=== PATIENT | female | born 1945 | race Caucasian/White ===

== ENCOUNTER 2019-01-03 09:31 | Emergency (ER) | payer MEDICARE, BC ==
[~2019-01-03] VITALS: Ht 157.5 cm; Wt 63.6 kg
[~2019-01-03 09:31] MED LIST: ACET-1025 PO; ALEN70TA14 PO; CALC-627 PO; ERGO500014 PO; PHEN100C12 PO
[2019-01-03] MEDS ORDERED: LIDOcaine 1.5% w/epinephrine 1:200,000 5ml ampul SQ ONE (10:10)
[2019-01-03] MEDS ORDERED: LIDOcaine 1% W/epiNEPHrine 1:200,000 10ml vial SQ ONE (10:20)
--- NOTE | 2019-01-03 10:51 | NUR ---
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
--- NOTE | 2019-01-03 10:56 | NUR ---
pt returns from from xray
[2019-01-03 11:40] VITALS: BP 144/67
== END 2019-01-03 11:50 | disposition home or self-care (01) ==
LOC: ER 09:31
DX: S01.81XA Laceration without foreign body of other part of head, initial encounter (principal); S60.212A Contusion of left wrist, initial encounter; S80.01XA Contusion of right knee, initial encounter; Z88.5 Allergy status to narcotic agent; Z88.6 Allergy status to analgesic agent; Z79.899 Other long term (current) drug therapy; W18.39XA Other fall on same level, initial encounter; Y93.89 Activity, other specified; Y92.89 Other specified places as the place of occurrence of the external cause; Y99.8 Other external cause status
CPT/HCPCS: 12013; 29125; 73090; 73110; 99284

== ENCOUNTER 2021-01-01 11:59 | Emergency (ER) | payer BC, MEDICARE ==
[~2021-01-01] VITALS: Ht 157.5 cm; Wt 54.5 kg
[2021-01-01 13:23] LABS: BASOPHILS % (AUTO) 0.8 % (0-1); EOSINOPHILS % (AUTO) 0.9 % (0-6); HEMATOCRIT 41.1 % (35.0-45.0); HEMOGLOBIN 13.5 g/dl (12.0-16.0); LYMPHOCYTES # (AUTO) 1.3 X10'3 (1.1-4.8); LYMPHOCYTES % (AUTO) 31.8 % (21-51); MEAN CORPUSCULAR HEMOGLOBIN 33.2 PG (27.0-31.0); MEAN CORPUSCULAR HGB CONC 32.9 g/dL (33.0-36.5); MEAN PLATELET VOLUME 11.4 FL (7.4-10.4); MONOCYTES # (AUTO) 0.4 X10'3 (0-0.9); MONOCYTES % (AUTO) 8.8 % (2-12); NEUTROPHILS # (AUTO) 2.4 X10'3 (1.8-7.7); NEUTROPHILS % (AUTO) 57.7 % (42-75); PLATELET COUNT 149 X10'3 (140-440); RED BLOOD COUNT 4.07 X10'6 (4.20-5.60); RED CELL DISTRIBUTION WIDTH 13.6 % (11.5-14.5); WHITE BLOOD COUNT 4.1 X10'3 (4.5-11.0)
[2021-01-01 13:42] LABS: ALANINE AMINOTRANSFERASE 22 U/L (12-78); ALBUMIN 4.2 G/DL (3.4-5.0); ALBUMIN/GLOBULIN RATIO 1.4 (1.1-1.5); ALKALINE PHOSPHATASE 85 IU/L (46-116); ASPARTATE AMINO TRANSFERASE 10 U/L (10-37); BILIRUBIN,TOTAL 0.3 MG/DL (0.1-1.0); BLOOD UREA NITROGEN 21 MG/DL (7-18); BUN/CREATININE RATIO 23.6 (6.6-38.0); CALCIUM 8.8 MG/DL (8.5-10.1); CREATININE 0.89 MG/DL (0.40-0.90); GLUCOSE 99 MG/DL (70-104); POTASSIUM 4.6 MMOL/L (3.5-5.1); SODIUM 144 MMOL/L (135-145); TOTAL CARBON DIOXIDE 30.8 MMOL/L (24-32); TOTAL PROTEIN 7.2 G/DL (6.4-8.2); eGFR 62 ML/MIN
[2021-01-01 13:44] LABS: ANION GAP 6 (8-16); CHLORIDE 107 MMOL/L (99-107)
[2021-01-01 13:46] LABS: TROPONIN I < 0.04 NG/ML (0.0-0.05)
--- NOTE | 2021-01-01 16:45 | NUR ---
Patient states she just voided and is unable to provide urine sample. Water placed at bedside.
[2021-01-01 17:52] LABS: CLARITY,URINE SLIGHTLY CLOUDY (Clear); COLOR,URINE YELLOW (Yellow); UA COLLECTION TYPE CLN CATCH MIDSTREAM
[2021-01-01 17:53] LABS: GLUCOSE, URINE NEGATIVE (Neg); KETONES,URINE NEGATIVE (Neg); NITRITES, URINE NEGATIVE (Neg); OCCULT BLOOD,URINE TRACE-LYSED (Neg); PH,URINE 7.5 (4.8-8.0); PROTEIN,URINE NEGATIVE (Neg)
[2021-01-01 17:54] LABS: UROBILINOGEN,URINE 0.2 E.U/dL (0.2-1.0)
[2021-01-01 17:55] LABS: LEUKOCYTE ESTERASE ,URINE MODERATE (Neg)
[2021-01-01 17:57] LABS: MUCUS STRANDS FEW /LPF (Neg); SQUAMOUS EPITHELIAL CELL,UR MODERATE /LPF (FEW)
[2021-01-01 17:58] LABS: BACTERIA,URINE 1+ /HPF (Neg); RBC,URINE 0-2 /HPF (0-2)
[2021-01-01 18:04] LABS: URINE AMPHETAMINE SCREEN NEGATIVE (Neg); URINE BARBITUATE SCREEN NEGATIVE (Neg); URINE BENZODIAZEPINES SCREEN NEGATIVE (Neg); URINE CANNABINOID SCREEN NEGATIVE (Neg); URINE COCAINE SCREEN NEGATIVE (Neg); URINE METHADONE SCREEN NEGATIVE (Neg); URINE OPIATE SCREEN NEGATIVE (Neg); URINE PHENCYCLIDINE SCREEN NEGATIVE (Neg)
[2021-01-01] MEDS ORDERED: cephalexin 250mg capsule PO ONE (21:45)
--- NOTE | 2021-01-01 21:45 | NUR ---
HAD PT WALK TO THE MD. THE PT HAD ASKED ME TWICE TO GO HOME. MD INFORMED. PT HAS A STRONG AND STEADY GAIT AND STATES THAT SHE IS FEELING SO MUCH BETTER, AND REALLY WANTS TO GO HOME INSTEAD OF BEING ADMITTED. HER SPOUSE IS HERE WELL. MD TALKED TO THE PT AND WILL SEND HER HOME ON ABX FOR UTI.
[2021-01-01] MEDS ORDERED: CEPH-585 PO (21:46)
[2021-01-01 22:32] VITALS: BP 172/74
== END 2021-01-01 22:33 | disposition home or self-care (01) ==
LOC: ER 11:59
DX: N39.0 Urinary tract infection, site not specified (principal); R42 Dizziness and giddiness; Z86.69 Personal history of other diseases of the nervous system and sense organs; Z88.8 Allergy status to other drugs, medicaments and biological substances; Z79.899 Other long term (current) drug therapy
CPT/HCPCS: 36415; 70450; 71045; 80053; 80305; 81001; 84484; 85025; 87077; 87088; 87186; 93005; 99285

== ENCOUNTER 2024-12-15 16:25 | Emergency (ER) | payer MEDICARE, BC ==
[~2024-12-15] VITALS: Ht 157.5 cm; Wt 54.2 kg
[~2024-12-15 16:25] MED LIST changes: +BISA10SU60 RC
--- NOTE | 2024-12-15 16:31 | ELECTROCARDIOGRAPH REPORT ---
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
[2024-12-15 16:33] VITALS: BP 152/84; PULSE 71; RESP 16; TEMP 98.3; O2SAT 98
--- NOTE | 2024-12-15 17:16 | RADIOLOGY REPORT ---
CHEST RADIOGRAPH Indication: CP Technique: Single frontal view of the chest was obtained Comparison: CHEST,SINGLE VIEW on DOS: 01/01/21 FINDINGS: Lines and Tubes: None Lungs: No focal consolidation. Pleura: No effusion. No pneumothorax. Cardiomediastinal contours: Unremarkable Bones: No acute osseous abnormality. IMPRESSION: No acute cardiopulmonary disease.
[2024-12-15 17:26] LABS: MEAN PLATELET VOLUME 11.7 FL (7.4-10.4); RED CELL DISTRIBUTION WIDTH 13.8 % (11.5-14.5)
--- NOTE | 2024-12-15 17:28 | Physician Documentation ---
History of Present Illness ~ Chief Complaint: Dizziness Stated Complaint: DIZZINESS/FALLING Time Seen by MD: 17:04 Primary Medical Doctor: MD Aniket Source: patient Mode of Arrival: POV Exam Limitations: no limitations HPI Chief Complaint: Fall Caveat: None Independent Historians: None History of Present Illness: Patient is a 79-year-old woman who denies any medical problems complains of a fallen at home prior to arrival. Patient states that she was outside at her [employer] pile when all of sudden her legs came out from underneath her but she fell forward landing onto her hands. Patient denies any injury. Patient does not know why she fell. Patient denies passing out. Patient states that she fell one week ago outside also. No injuries. Patient is adamantly denying any dizziness or vertigo. Patient denies any chest pain. No shortness a breath. Patient denies any nausea vomiting diarrhea. Patient denies any associated symptoms. She is wanting to know why she fell. She does not know why she fell. However the patient has no other symptoms. Review of systems: All systems were reviewed and are negative except for what is indicated in the history of present illness. Past Medical History: Distant history of epilepsy and seizures Past Surgical History: Noncontributory Social History: No tobacco use, no alcohol use, no drug use Medications: Reviewed as documented Nursing Notes Allergies: Reviewed as documented in Nursing Notes Tetanus within 5 Years?: Yes Medication Reconciliation Allergies: Coded Allergies: hydrocodone (Unverified Adverse Reaction, Severe, extremely hyper, off the mena, 12/15/24) meperidine HCl (Verified Adverse Reaction, Severe, SEIZURE, 12/15/24) Scheduled Alendronate Sodium (Alendronate Sodium), 70 MG PO Q7D, (Reported) Bisacodyl (Dulcolax), 1 SUPP RC DAILY Calcium/Magnesium (Calcium Magnesium Tablet), 1 TAB PO DAILY, (Reported) Ergocalciferol* (Vitamin D*), 1 CAP PO Q 14 DAYS ON SUN, (Reported) Phenytoin Sodium Extended (Phenytoin Sodium Extended), 100 MG PO TID, (Reported) Scheduled PRN Acetaminophen (Tylenol Extra Strength), 1 TAB PO DAILY PRN for pain, (Reported) Past Medical History Past Medical History: Seizures Past Surgical History: , orthopedic surgeries Alcohol Use: None Drug Use: none Lives In: Home Review of Systems All Other Systems at this time: Reviewed and Negative ROS Patient denies any other acute symptoms other than above. All other systems are negative Physical Exam Vital Signs: RN Vital Signs have been reviewed: Yes, Temperature: 98.3, Source: Temporal, Heart Rate: 71, Respiratory Rate: 16, BP: 152/84, Pulse Oximetry: 98, Weight: 54.200 Oxygen Flow Rate: 0 Pulse Oximetry Reflects: adequate oxygenation Physical Exam General Appearance: No distress HEENT: Normal OP, moist oral mucosa, PERRL, EOMI, head and face appear atraumatic Neck: supple, normal ROM, trachea midline Pulmonary: No respiratory distress, CTA, BS equal Cardiac: RRR, no murmur, rub or gallop, GI: nondistended, soft, nontender, normal bowel sounds, no guarding, no rebound Extremities: normal ROM, no swelling, non-tender, extremities appear atraumatic Skin: intact, dry, warm, no rashes Neuro: AAOx3, speech is clear, no focal motor weakness, no pronator drift, 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, dorsiflexion and plantar flexion 5/5 bilaterally Psych: normal affect, good eye contact, no apparent hallucination, normal speech Progress Results/Orders Results/Orders Orders - DENZEL DODSON MD Chest,Single View (12/15/24 16:39) Monitor (12/15/24 16:39) Saline Lock (12/15/24 16:39) Oxygen (12/15/24 16:39) Hs Troponin I W Calculations (12/15/24 18:39) Hs Troponin I W Calculations (12/15/24 19:39) Completed Orders - DENZEL DODSON MD Electrocardiogram (12/15/24 ) Chest,Single View (12/15/24 16:39) Cbc/Diff (12/15/24 16:39) BMP (12/15/24 16:39) PBNP (12/15/24 16:39) Hs Troponin I W Calculations (12/15/24 16:39) Vital Signs 12/15/24 16:33 Temp 98.3 Pulse 71 Resp 16 B/P (MAP) 152/84 Pulse Ox 98 O2 Flow Rate 0 Laboratory Tests Test 12/15/24 16:36 12/15/24 17:00 Glucometer 114 H White Blood Count 4.5 Red Blood Count 3.95 L Hemoglobin 13.2 Hematocrit 38.4 Mean Corpuscular Volume 97.2 Mean Corpuscular Hemoglobin 33.3 H Mean Corpuscular Hemoglobin Concent 34.3 Red Cell Distribution Width 13.8 Platelet Count 111 L Mean Platelet Volume 11.7 H Neutrophils (%) (Auto) 60.9 Lymphocytes (%) (Auto) 27.9 Monocytes (%) (Auto) 9.7 Eosinophils (%) (Auto) 0.7 Basophils (%) (Auto) 0.8 Neutrophils # (Auto) 2.7 Lymphocytes # (Auto) 1.2 Monocytes # (Auto) 0.4 Eosinophils # (Auto) 0.0 Basophils # (Auto) 0.0 CBC Comment Sodium Level 141 Potassium Level 4.0 Chloride Level 105 Carbon Dioxide Level 25.8 Anion Gap 10 Blood Urea Nitrogen 18 Creatinine 0.75 Estimated GFR/1.73 m2 75 BUN/Creatinine Ratio 24.0 H Glucose Level 104 Calcium Level 9.1 Troponin I High Sensitivity 6 Pro-B-Type Natriuretic Peptide 132 Albumin 3.9 Chemistry Comments Medical Decision Making Findings Differential diagnosis includes but is not limited to: Mechanical fall, syncope, cardiac dysrhythmia, contusions, fractures, closed head injury, seizure EKG independent interpretation: Performed at 4:29 p.m.. Normal sinus rhythm, heart rate 76, normal axis, normal ST segments Chest x-ray, single view, indication: Fall Independent interpretation: Lungs are clear, normal mediastinum, normal cardiac silhouette. No acute cardiopulmonary process Laboratory data independent interpretation: CBC: Unremarkable CMP: Normal Troponin: 6 Pro BNP: 114 Emergency department course/medical decision-making: Patient has had two falls in the last week. She does not know why she fell. Patient just states that her legs went out from underneath her. However she is denying passing out. She is denying any confusion or seizure. She is denying any symptoms of acute coronary syndrome. Patient is afebrile and hemodynamically stable. Patient does not appear to have suffered any injury including a closed head injury. Lab work is unremarkable. EKGs normal and chest x-ray is unremarkable. Patient is going to be discharged home. Test results and need to follow up with your primary care doctor is discussed with her. Patient is stable for discharge. Departure Time of Disposition: 17:39 Disposition: 01 HOME / SELF CARE / HOMELESS Impression: Primary Impression: Fall Condition: Stable Discharge Instructions: Fall Prevention in the Home, Adult, [id number] Additional Instructions: RETURN TO THE EMERGENCY DEPARTMENT IF YOU DEVELOP ANY SYMPTOMS OF CONCERN. FOLLOW UP WITH YOUR PRIMARY CARE DOCTOR. Education Educated: Patient Educated regarding: diagnosis, treatment, need for follow up Signature Scribe Signature: NO SCRIBE Attestation: NO SCRIBE DENZEL DODSON MD Dec 15, 2024 17:28
[2024-12-15 17:48] LABS: CREATININE 0.75 MG/DL (0.40-0.90); PRO BRAIN NATRIURETIC PEPTIDE 132 PG/ML (0-450); TOTAL CARBON DIOXIDE 25.8 MMOL/L (24-32); eCRCL 49 ML/MIN; eGFR 75 ML/MIN
== END 2024-12-15 18:06 | disposition home or self-care (01) ==
LOC: ER 16:26
DX: R42 Dizziness and giddiness (principal); G40.909 Epilepsy, unspecified, not intractable, without status epilepticus; R06.02 Shortness of breath; Z88.5 Allergy status to narcotic agent; W19.XXXA Unspecified fall, initial encounter; Y93.89 Activity, other specified; Y92.89 Other specified places as the place of occurrence of the external cause; Y99.8 Other external cause status
CPT/HCPCS: 71045; 80048; 82948; 83880; 84484; 85025; 93005; 99285